=== PATIENT | male | born 1960 | race Caucasian/White ===

== ENCOUNTER → 2019-12-25 | Outpatient (CLI) | payer MEDICAID, SELFPAY ==
--- NOTE | 2019-12-25 14:10 | RAD_ITS ---
STUDY: X-RAY - LUMBAR SPINE REASON FOR EXAM: Male, 59 years old. Chronic pain, right leg numbness TECHNIQUE: 3 view(s) of the lumbar spine were obtained. COMPARISON: None FINDINGS: Normal lumbar lordosis. There is a mild dextroscoliosis of the lumbar spine. There is a normal alignment of the vertebrae. There is multilevel endplate spondylosis of the lumbar vertebrae. There is multi-level degenerative disc disease with multi-level disc space narrowing. The soft tissue structures are unremarkable. RAD/Lumbar Spine 2 or 3 Views IMPRESSION: Degenerative changes of the spine, as detailed above. Electronically Signed: Facundo Bautista, at 15:57 EDT , Service support ,
--- NOTE | 2019-12-25 14:10 | RAD_ITS ---
STUDY: X-RAY - CERVICAL SPINE REASON FOR EXAM: Male, 59 years old. Chronic posterior pain TECHNIQUE: 3 view(s) of the cervical spine were obtained. COMPARISON: None FINDINGS: Normal anterior atlantoaxial articulation. Normal odontoid process. There is straightening of the normal cervical lordosis. There is multi-level endplate spondylosis. There is multi-level degenerative disc disease with multilevel disc space narrowing. Normal visualized intervertebral neuroforamina. There are atherosclerotic vascular calcifications of the carotid arteries. RAD/Cerv Spine 2 or 3 Views IMPRESSION: Straightening of the normal cervical lordosis. Spondylosis and disc space narrowing worse at the C5-C6 and C6-C7 levels. Electronically Signed: Facundo Bautista, at 15:52 EDT , Service support ,
== END | disposition home or self-care (01) ==
LOC: RAD 13:44
PROVIDERS: Referring Provider Anesthesiology Pain Medicine; Visit Provider Anesthesiology Pain Medicine
DX: M54.2 Cervicalgia (principal); M54.5 Low back pain
CPT/HCPCS: 72040; 72100

== ENCOUNTER → 2020-02-26 | Outpatient (CLI) | payer MEDICAID, SELFPAY ==
--- NOTE | 2020-02-26 11:15 | RAD_ITS ---
STUDY: X-RAY - CERVICAL SPINE REASON FOR EXAM: Male, 59 years old. NECK PAIN. DDD TECHNIQUE: 3 view(s) of the cervical spine were obtained. COMPARISON: Prior cervical spine imaging of December 25, 2019 FINDINGS: Normal anterior atlantoaxial articulation. Normal odontoid process. There is straightening of the normal cervical lordosis. Normal vertebral body height without fracture, osteolytic or blastic bone lesions. Mild degenerative changes at C2-3 and C3-4. Mild disc narrowing and spondylitic endplate changes at C4-5. Advanced disc narrowing and spondylitic endplate changes at C5-6 and C6-7. Uncovertebral arthrosis and hypertrophy most notably at C5, C6 and C7. Posterior elements are properly located. The soft tissue structures are unremarkable. RAD/Cerv Spine 2 or 3 Views IMPRESSION: Continued straightening of the cervical spine with otherwise normal alignment. Degenerative disc and joint changes as noted above not substantially changed from prior exam. Degenerative disc narrowing, spondylitic endplate changes and uncovertebral hypertrophy are most notable at C4-5, C5-6 and C6-7. Electronically Signed: Padmini Adorno MD at 18:14 EDT , Service support ,
== END | disposition home or self-care (01) ==
LOC: RAD 11:02
PROVIDERS: PCP Family Medicine; Referring Provider Anesthesiology Pain Medicine; Visit Provider Anesthesiology Pain Medicine
DX: M54.2 Cervicalgia (principal)
CPT/HCPCS: 72040